=== PATIENT | female | born 1945 | race Caucasian/White ===

== ENCOUNTER 2023-11-02 05:11 | Observation (INO) | payer OTHER ==
[2023-10-28 12:26] VITALS: BP 162/78; PULSE 60; RESP 16
[2023-11-02] VITALS (35 sets, daily range): BP systolic 97–161; BP diastolic 51–81; PULSE 60–96; RESP 11–19
[~2023-11-02] VITALS: Ht 170.2 cm; Wt 64.1 kg
[~2023-11-02 05:11] MED LIST: ASCO500C18 PO; CHOL200013 PO; ESOM40CA54 PO; ROSU10TA28 PO
[2023-11-02] MEDS ORDERED: SUCCINYLCHOLINE CHLORIDE 20 MG/ML 10 ML VIAL ONE (06:23)
[2023-11-02] MEDS ORDERED: PROPOFOL 10 MG/ML 20ML VIAL IV ONE (06:23)
[2023-11-02] MEDS ORDERED: DEXAMETHASONE SOD PHOSPHATE 10MG/ML 1ML VIAL ONE (06:23)
[2023-11-02] MEDS ORDERED: LIDOCAINE PF 100MG/5ML (2%) SYRINGE 5ML ONE (06:23)
[2023-11-02] MEDS ORDERED: GLYCOPYRROLATE 0.2 MG/ML 5 ML VIAL ONE (06:23)
[2023-11-02] MEDS ORDERED: FENTANYL CITRATE PF 50 MCG/1 ML 2ML VIAL ONE (06:24)
[2023-11-02] MEDS ORDERED: ROCURONIUM BROMIDE 10MG/1ML 5ML VL ONE (06:24)
[2023-11-02] MEDS ORDERED: NEOSTIGMINE METHYLSULFATE 1MG/ML IV ONE (06:24)
[2023-11-02] MEDS ORDERED: MIDAZOLAM HCL 1 MG/ML 2ML VIAL ONE ×2 (06:24→07:27)
[2023-11-02] MEDS ORDERED: ONDANSETRON 4MG INJ ONE (06:24)
[2023-11-02] MEDS: CLINDAMYCIN IVPB 900MG/50ML 50 ML IV ONE (07:22)
[2023-11-02] MEDS: TRANEXAMIC ACID 1000MG/10ML ONE (07:55)
[2023-11-02] MEDS: GENTAMICIN SULFATE 80 MG/2 ML VIAL ONE (08:00)
[2023-11-02] MEDS: CEFAZOLIN SODIUM 1 GM VIAL ONE (08:00)
[2023-11-02] MEDS: 0.9%NACL 48.45 ML, ROPIVACAINE 0.5% 49.25ML, EPINEPH 0.5MG KETOROLAC 30MG,CLONIDINE 80MCG IV PRN (08:00)
[2023-11-02] MEDS: TRANEXAMIC ACID 1000MG/10ML IV ONE (08:50)
[2023-11-02] MEDS ORDERED: MAG/ALUM/SIMETH 30 ML UDCUP PO PRN (16:00)
[2023-11-02] MEDS ORDERED: TRAMADOL HCL 50 MG TABLET PO PRN (16:00)
[2023-11-02] MEDS ORDERED: DIPHENOXYLATE HCL/ATROPINE 2.5/0.025 MG TAB PO PRN (16:00)
[2023-11-02] MEDS: 0.9%NACL 1000ML 1,000 ML IV SCH (16:00)
[2023-11-02] MEDS ORDERED: ACETAMINOPHEN 325 MG TAB PO PRN (16:00)
[2023-11-02] MEDS ORDERED: BENZOCAINE/MENTH/CETYLPYRD CL 1 EACH LOZENGE MM PRN (16:00)
[2023-11-02] MEDS ORDERED: DiphenhydrAMINE HCL 50 MG/ML VIAL IM PRN (16:00)
[2023-11-02] MEDS ORDERED: DIPHENHYDRAMINE HCL 25 MG CAPSULE PO PRN (16:00)
[2023-11-02] MEDS ORDERED: ONDANSETRON 4MG INJ IVP PRN (16:00)
[2023-11-02] MEDS ORDERED: LACTULOSE 20 GM/30 ML UDCUP PO PRN (16:00)
[2023-11-02] MEDS ORDERED: ACETAMINOPHEN 325 MG TAB PO SCH (16:00)
[2023-11-02] MEDS: CLINDAMYCIN IVPB 900MG/50ML IV SCH (17:45)
[2023-11-02] MEDS: HYDROMORPH /0.9% NACL/PF PCA 50 ML IV PRN (19:21)
[2023-11-02] MEDS: ATORVASTATIN 20 MG TABLET PO SCH (20:13)
[2023-11-03] VITALS (9 sets, daily range): BP systolic 92–142; BP diastolic 52–76; PULSE 66–83; RESP 17–20; O2SAT 95–98
[2023-11-03 04:07] LABS: HEMATOCRIT 30.5 % (36-48); MEAN CORPUSCULAR HEMOGLOBIN 29.9 pg (27.0-33.0); MEAN CORPUSCULAR HGB CONC 33.4 g/dL (32.0-36.0); MEAN CORPUSCULAR VOLUME 89.4 fL (79-99); RED BLOOD CELL COUNT(AUTO) 3.41 MIL/uL (4.00-5.50); RED CELL DISTRIBUTION WIDTH 13.1 % (11.0-15.5); WHITE BLOOD COUNT (AUTO) 13.9 K/uL (4.8-10.8)
[2023-11-03] MEDS: PANTOPRAZOLE 40 MG TAB DR PO SCH (08:38)
[2023-11-03] MEDS: RIVAROXABAN 10 MG TABLET PO SCH (08:39)
[2023-11-03] MEDS ORDERED: NON-FORMULARY MEDICATION 1 EACH (Rosuvastatin Calcium 10 MG) PO SCH (09:00)
[2023-11-03] MEDS ORDERED: NON-FORMULARY MEDICATION 1 EACH (Esomeprazole Magnesium 40 MG) PO SCH (09:00)
[2023-11-03] MEDS: 0.9%NACL 1000ML 1,000 ML IV SCH (21:36)
[2023-11-04 03:54] VITALS: BP 140/72; PULSE 94; RESP 19
[2023-11-04 04:20] LABS: HEMATOCRIT 27.7 % (36-48); MEAN CORPUSCULAR HEMOGLOBIN 29.6 pg (27.0-33.0); MEAN CORPUSCULAR HGB CONC 33.6 g/dL (32.0-36.0); MEAN CORPUSCULAR VOLUME 88.2 fL (79-99); RED BLOOD CELL COUNT(AUTO) 3.14 MIL/uL (4.00-5.50); RED CELL DISTRIBUTION WIDTH 13.2 % (11.0-15.5); WHITE BLOOD COUNT (AUTO) 9.6 K/uL (4.8-10.8)
[2023-11-04 04:30] LABS: CREATININE 0.8 mg/dL (0.5-1.5); POTASSIUM 3.8 mmol/L (3.5-5.1)
[2023-11-04 08:00] VITALS: BP 156/80; PULSE 94; RESP 17
[2023-11-04 08:10] VITALS: O2SAT 96
[2023-11-04 12:00] VITALS: BP 148/74; PULSE 73; RESP 17
[2023-11-04] MEDS: ACETAMINOPHEN 325 MG TAB PO PRN (13:53)
[2023-11-04 16:00] VITALS: BP 146/68; PULSE 90; RESP 17
== END 2023-11-04 19:14 ==
LOC: DAH 05:11 → DAHIP 05:12 → DAH 05:12 → 4DH 14:00
PROVIDERS: ADMIT Orthopaedic Surgery; ATTEND Orthopaedic Surgery
DX: M17.11 Unilateral primary osteoarthritis, right knee (principal); E11.9 Type 2 diabetes mellitus without complications; E78.5 Hyperlipidemia, unspecified; K21.9 Gastro-esophageal reflux disease without esophagitis; D72.829 Elevated white blood cell count, unspecified; Z90.49 Acquired absence of other specified parts of digestive tract; Z98.51 Tubal ligation status; Z79.899 Other long term (current) drug therapy; Z98.890 Other specified postprocedural states
CPT/HCPCS: 93005; 87641; 27447; 96365; 96366 ×3; 96368; 97161; 97012; 97116 ×4; 97530 ×9; 80048 ×2; 85027 ×2; 36415 ×2; A6260; G0378 ×48; G0379; A4510; A4520; A4554; A4600; J7120; A4215 ×2; A4649 ×4; J3010; J0690; J3490 ×6; J1100; J0330; J0171; J2001; J1580; J2250 ×2; J2704; J2405; J1885; J2710; J2795; J0735; A6223; A4930; C1763 ×2; C1776; A5120; A4223; A4335; A4222; A4221; A4663; A6450; J7030; 96375